=== PATIENT | male | born 1955 | race Caucasian/White ===

== ENCOUNTER 2025-03-27 08:04 | Emergency (ER) | payer OTHER, MEDICARE ==
[~2025-03-27] VITALS: Ht 175.3 cm; Wt 94.7 kg
[2025-03-27] MEDS ORDERED: ALBUTEROL SULFATE 0.5% 2.5 MG/0.5 ML VIAL INH ONE (08:30)
[2025-03-27] MEDS ORDERED: CEFTRIAXONE SODIUM 2 GM in SODIUM CHLORIDE 0.9% 100 ML IV ONE (08:30)
[2025-03-27] MEDS ORDERED: LACTATED RINGER'S 1,000 ML IV PRN (08:30)
[2025-03-27] MEDS ORDERED: methylPREDNISolone SOD SUCC 125 MG/2 ML VIAL IV ONE (08:30)
[2025-03-27 08:34] LABS: BASOPHILS 0.3 % (0.2-1.2); EOSINOPHILS 0.2 % (0.8-7.0); HEMATOCRIT 34.1 % (40.1-51.0); HEMOGLOBIN 10.7 g/dL (13.7-17.5); LYMPHOCYTES 16.2 % (21.8-53.1); MCH 29.4 PG (25.7-32.2); MCHC 31.4 g/dL (32.3-36.5); MCV 93.7 fL (79.0-92.2); MONOCYTES 11.7 % (5.3-12.2); NEUTROPHILS 71.2 % (34.0-67.9); PLATELET COUNT 250 K/uL (163-337); RBC 3.64 M/uL (4.63-6.08)
[2025-03-27] MEDS ORDERED: AZITHROMYCIN 500 MG in DEXTROSE 5% 250 ML IV ONE (08:45)
[2025-03-27] MEDS ORDERED: SODIUM CHLORIDE 0.9% 1,000 ML IV PRN (08:45)
[2025-03-27 08:49] LABS: INR 1.72 (0.80-1.30); PROTIME 19.1 Sec (11.2-14.2)
[2025-03-27] MEDS ORDERED: NOREPINEPHRINE BITARTRATE 250 ML IV SCH (09:00)
[2025-03-27 09:02] LABS: ALBUMIN 2.6 g/dL (3.4-5.0); ALBUMIN/GLOBULIN RATIO 0.72 (1.1-2.4); BILIRUBIN, TOTAL 0.4 mg/dL (0.2-1.0); BUN/CREATININE RATIO 7.72 (6.0-28.6); CALCIUM 7.1 mg/dL (8.5-10.1); CREATININE, SERUM 10.35 mg/dL (0.70-1.30); LACTIC ACID, BLOOD 1.7 mmol/L (0.4-2.0); PROTEIN, TOTAL 6.2 g/dL (6.4-8.2)
[2025-03-27 09:09] LABS: ANION GAP 37.1 (7-21); POTASSIUM 7.1 mmol/L (3.5-5.1)
[2025-03-27] MEDS ORDERED: CALCIUM CHLORIDE 1,000 MG/10 ML SYR IV ONE (09:15)
[2025-03-27] MEDS ORDERED: SODIUM BICARBONATE 50 MEQ/50 ML SYR IV ONE (09:15)
[2025-03-27] MEDS ORDERED: PANTOPRAZOLE SODIUM 40 MG/10 ML VIAL IV ONE (10:00)
[2025-03-27] MEDS ORDERED: SODIUM ZIRCONIUM CYCLOSILICATE 10 GM PACK PO ONE (10:00)
[2025-03-27] MEDS ORDERED: Insulin Regular, Human 100 UNIT/ML ML IV ONE (10:00)
[2025-03-27] MEDS ORDERED: DEXTROSE 50% 50 ML SYR IV ONE (10:00)
[2025-03-27] MEDS ORDERED: ALBUTEROL/IPRATROPIUM 3 ML NEB INH ONE (10:30)
[2025-03-27] MEDS ORDERED: LIDOCAINE 2% VISCOUS 6 ML SYR TOP ONE (10:45)
[2025-03-27 10:56] LABS: BUN/CREATININE RATIO 7.91 (6.0-28.6); CALCIUM 7.3 mg/dL (8.5-10.1); CREATININE, SERUM 9.47 mg/dL (0.70-1.30)
[2025-03-27 10:59] LABS: ANION GAP 33.6 (7-21); POTASSIUM 6.6 mmol/L (3.5-5.1)
[2025-03-27] MEDS ORDERED: SODIUM CHLORIDE 0.9% 1,000 ML IV ONE (11:00)
[2025-03-27 11:07] LABS: BILIRUBIN, URINE NEGATIVE (negative); BLOOD/HGB, URINE NEGATIVE (Negative); KETONE, URINE TRACE (Negative); LEUK ESTERASE, URINE NEGATIVE (negative); NITRITE, URINE NEGATIVE (negative)
[2025-03-27 11:12] LABS: EPITHELIAL CELLS, URINE SQUAMOUS 1+ /lpf (0-1+)
[2025-03-27 11:13] LABS: BACTERIA, URINE 1+ /hpf (negative); CASTS, URINE NONE SEEN \\lpf; COLLECTION TYPE, URINE CLEAN CATCH; CRYSTALS, URINE NONE SEEN (0-1+); RED BLOOD CELLS, URINE 0-1 /hpf (0-5); REFLEX CULTURE, URINE No (No)
[2025-03-27 12:02] LABS: LACTIC ACID, BLOOD 1.5 mmol/L (0.4-2.0)
[2025-03-27 12:17] VITALS: BP 97/60
[2025-03-27] MEDS ORDERED: VENTOLIN HFA18 GM INH (12:30)
[2025-03-27] MEDS ORDERED: ASMANEX HFA13 G2 IH (12:31)
--- NOTE | 2025-03-28 19:35 | EKG ---
[facility] [address] [facility] [place], [place] [address] Signed Sinus rhythm with 1st degree AV block Poor data quality Nonspecific ST abnormality Abnormal ECG Confirmed by Constantino Rhodes DO ([id number]) on 03/28/2025 7:34:51 PM Electronically Signed By: CONSTANTINO RHODES DO 03/28/251934 PATIENT NAME: NEDASAURABH JEREMIAS Electrocardiogram DATE OF : 57 PHYSICIAN: CONSTANTINO RHODES DO REPORT #: [id number] REPORT IS CONFIDENTIAL AND NOT TO BE RELEASED WITHOUT AUTHORIZATION
== END 2025-03-27 13:06 ==
LOC: ED 08:04
PROVIDERS: Emergency Medicine
DX: N17.9 Acute kidney failure, unspecified (principal); E87.5 Hyperkalemia; I95.9 Hypotension, unspecified; J18.9 Pneumonia, unspecified organism; K51.90 Ulcerative colitis, unspecified, without complications; D64.9 Anemia, unspecified; Z88.2 Allergy status to sulfonamides
CPT/HCPCS: 36415; 51702; 71045; 71250; 74176; 80048; 80053; 81001; 83605; 83690; 83880; 84484; 85025; 85610; 85730; 87040; 94640; 94799; 99291; A4311; J0456; J0696; J1815; J2470; J2919; J7030; J7060